=== PATIENT | female | born 2000 | race Caucasian/White ===

== ENCOUNTER 2025-04-19 16:07 | Emergency (ER) | payer MEDICAID, SELFPAY ==
[2025-04-19 16:14] VITALS: BP 123/79; PULSE 106; RESP 20; TEMP 36.8; O2SAT 98
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
[2025-04-19 16:55] LABS: HCG Qualitative,Urine Negative
[2025-04-19 23:06] VITALS: BP 126/82; PULSE 86; RESP 17; TEMP 36.7; O2SAT 98
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
[2025-04-19] MEDS: KETOROLAC INJ 60 MG/2 ML VIAL IM (23:58)
== END 2025-04-20 00:09 | disposition home or self-care (01) ==
PROVIDERS: Nurse Practitioner Primary Care; Emergency Provider Emergency Medicine; PCP Family Medicine
DX: S16.1XXA Strain of muscle, fascia and tendon at neck level, initial encounter (principal); V49.9XXA Car occupant (driver) (passenger) injured in unspecified traffic accident, initial encounter; R51.9 Headache, unspecified
CPT/HCPCS: 70450; 72125; 72131; 81025; 96372; 99284; J1885